=== PATIENT | female | born 1935 | race Caucasian/White ===

== ENCOUNTER 2021-02-06 09:40 | Outpatient (CLI) | payer MEDICARE, SELFPAY ==
--- NOTE | ~2021-02-06 | DEXA_ITS ---
Bone Density Report Name: Sandra Cavanaugh Age: 85 Sex: Female Ethnicity: White Date of : 1935 Indication: osteopenia; monitoring treatment; height loss; Referring Provider: Edward Christopher Study: Bone densitometry was performed. Exam Date: February 06, 2021 Accession number: [id number] Bone Density: Region BMD T-score Z-score Classification AP Spine (L1, L3) 0.916 -0.9 1.8 Normal Femoral Neck (Left) 0.675 -1.6 0.9 Osteopenia Total Hip (Left) 0.943 0.0 2.2 Normal Total Hip Bilateral Avg 0.944 0.0 2.2 Normal Femoral Neck (Right) 0.705 -1.3 1.1 Osteopenia Total Hip (Right) 0.944 0.0 2.2 Normal World Health Organization criteria for BMD impression classify patients as: Normal (T-score at or above -1.0), Osteopenia (T-score between -1.0 and -2.5), or Osteoporosis (T-score at or below -2.5). 10-year Fracture Risk: FRAX not reported because: Treated for osteoporosis Previous Exams: Region Exam Age BMD T-score BMD Change BMD Change Date g/cm2 vs Baseline vs Previous AP Spine(L1, L3) 02/06/2021 85 0.916 -0.9 0.073(8.6%)# 0.020(2.2%)# 11/16/2007 71 0.896 -1.1 0.053(6.3%)* 0.053(6.3%)* 01/13/2005 69 0.843 -1.5 Total Hip(Left) 02/06/2021 85 0.943 0.0 0.043(4.8%)# -0.005(-0.6%) 05/18/2017 81 0.948 0.1 0.048(5.4%)# 0.011(1.2%)# 11/16/2007 71 0.937 0.0 0.037(4.1%)* 0.037(4.1%)* 01/13/2005 69 0.900 -0.3 Total Hip(Right) 02/06/2021 85 0.944 0.0 0.101(12.0%)# 0.017(1.8%) 05/18/2017 81 0.927 -0.1 0.084(10.0%)# 0.029(3.2%)# 11/16/2007 71 0.898 -0.4 0.055(6.6%)* 0.055(6.6%)* 01/13/2005 69 0.842 -0.8 *Denotes significance at 95% confidence level, LSC for AP Spine = 0.022 g/cm2, LSC for Total Hip = 0.027 g/cm2 Clinical Information Provided by Patient: Is being treated for osteoporosis Has used the following medications: Fosamax (i.e. alendronate), Vitamin D, Calcium Patient maximum height was 65.5 Menopause Age: 52 No regular weight bearing exercise Does not regularly consume dairy products Onset of menses at age 15 Number of children 2 Impression: The patient has low bone mass, based on the Left Femoral Neck T-score. No significant bone loss was observed. Discussion: PATIENT UNDER TREATMENT WITH NO SIGNIFICANT BMD LOSS SINCE LAST EXAM. In an untreated patient, BMD typically declines with age. A lack of decline or gain is usually a sign that treatment is eff
--- NOTE | ~2021-02-06 | MM_ITS ---
EXAMINATION: MM screening zaida BI w isaiah HISTORY: Screening TECHNIQUE: Craniocaudal and mediolateral oblique 3-D tomosynthesis images were obtained and synthetic 2-D images were generated. CAD analysis was submitted and interpreted. COMPARISON: Comparison to multiple prior studies sequentially, with oldest reviewed study dated 04/29. BREAST PARENCHYMAL COMPOSITION: The breasts are heterogenously dense, which may obscure small masses FINDINGS: There is a new area of architectural distortion in the upper inner quadrant of the left georgina ast anteriorly. The right breast is stable without evidence for malignancy. IMPRESSION: 1. New architectural distortion upper inner quadrant of the left breast anteriorly. 2. Additional mammographic views and possible breast ultrasound are recommended. BI-RADS Category 0: Incomplete: Needs additional imaging evaluation. Reviewed, dictated and finalized at location A. IMPRESSION: 1. New architectural distortion upper inner quadrant of the left breast anterio rly. 2. Additional mammographic views and possible breast ultrasound are recommended . BI-RADS Category 0: Incomplete: Needs additional imaging evaluation.
== END 2021-02-06 09:41 | disposition home or self-care (01) ==
LOC: ANHIMG 09:43
PROVIDERS: PCP Physician Assistant; Visit Provider Physician Assistant
DX: Z12.31 Encounter for screening mammogram for malignant neoplasm of breast (principal); M81.0 Age-related osteoporosis without current pathological fracture; R92.8 Other abnormal and inconclusive findings on diagnostic imaging of breast; M85.852 Other specified disorders of bone density and structure, left thigh; M85.851 Other specified disorders of bone density and structure, right thigh
CPT/HCPCS: 77063; 77067; 77080

== ENCOUNTER 2021-03-03 12:02 | Outpatient (CLI) | payer MEDICARE, SELFPAY ==
--- NOTE | ~2021-03-03 | MMUS_ITS ---
EXAMINATION: MM diagnostic mammo unilat LT, US breast LT limited HISTORY: Left breast architectural distortion on screening mammogram TECHNIQUE: Additional 3-D tomosynthesis images of the left breast were performed and synthetic 2-D im ages were generated. CAD analysis was submitted and interpreted. High resolution limited left breast ultrasound was performed. COMPARISON: 02/06/2021, 05/26/2018, 05/25/2017, 05/18/2017 FINDINGS: MAMMOGRAPHIC FINDINGS: There is a chronic area of architectural distortion at the 12:00 location in the middle third breast. On prior mammograms, an oil cyst was situated centrally within the area of architectural distortion. The oil cyst is no longer evident possibly resulting in a more consolidated appearance of the chroni c architectural distortion relative to prior mammograms. No suspicious calcification or definite mass are identified. ULTRASOUND: Small cysts are noted in the breast at the 11:00 location 2 cm from the nipple in the 12:00 location near the nipple. No definite suspicious cystic or solid mass is identified. A focal area of shadowing is seen in the breast at the 11:00 location 2 cm from the nipple with a tract contiguous with a scar of the skin. IMPRESSION: 1. Probably benign left breast findings. 2. Recommend 6 month follow-up left diagnostic mammogram and possible ultrasound. BI-RADS category 3, probably benign findings. Reviewed, dictated and finalized at location A. IMPRESSION: 1. Probably benign left breast findings. 2. Recommend 6 month follow-up left diagnostic mammogram and possible ultrasoun d. BI-RADS category 3, probably benign findings.
== END 2021-03-03 12:03 | disposition home or self-care (01) ==
PROVIDERS: PCP Physician Assistant; Visit Provider Physician Assistant
DX: N60.02 Solitary cyst of left breast (principal)
CPT/HCPCS: 76642; 77065

== ENCOUNTER 2021-09-03 10:57 | Outpatient (CLI) | payer MEDICARE, SELFPAY ==
--- NOTE | ~2021-09-03 | MMUS_ITS ---
EXAMINATION: MM diagnostic zaida LT w isaiah, US breast LT limited HISTORY: 6 month follow up TECHNIQUE: ML, MLO and CC 3-D tomosynthesis images of were performed and synthetic 2-D images were ge nerated. CAD analysis was submitted and interpreted. High resolution targeted left breast ultrasound was performed. COMPARISON: 03/04/2021 diagnostic left mammogram and limited left breast ultrasound 02/06/2021, 05/26/2018 bilateral screening mammogram examinations BREAST PARENCHYMAL COMPOSITION: There are scattered areas of fibroglandular density. FINDINGS: MAMMOGRAPHIC FINDINGS: There is suspicious new irregular soft tissue density and interval architectural distortion in the an terior upper mid left breast compared to prior examinations. ULTRASOUND: At 11:00 2 cm from the nipple corresponding to the area of mammographic abnormality is a prominent ar ea of heterogeneous irregular echotexture with prominent posterior shadowing. There is an at least 5 mm irregular hypoechoic area with prominent posterior shadowing. Ultrasound-guided biopsy is recommen ded. IMPRESSION: 1. Suspicious irregular hypoechoic sonographic mass with posterior shadowing corresponding to new zaida mographic architectural distortion at 11:00 2 cm from nipple 2. Ultrasound-guided biopsy is recommended. BI-RADS category 4, suspicious findings. Dr. Mendoza telephoned the report and ultrasound guided biopsy recommendation on 09/03/2021 at 1453 hour s to Nurse [employer] extension [phone] Reviewed, dictated and finalized at location A. UTER NETWORK SUPPORT SPECIALIST IMPRESSION: 1. Suspicious irregular hypoechoic sonographic mass with posterior shadowing co rresponding to new mammographic architectural distortion at 11:00 2 cm from nip ple 2. Ultrasound-guided biopsy is recommended. BI-RADS category 4, suspicious findings. Dr. Mendoza telephoned the report and ultrasound guided biopsy recommendation on 11/04/2020 at 1453 hours to Nurse voicemail extension [phone] IMPRESSION: 1. Suspicious irregular hypoechoic sonographic mass with posterior shadowing co rresponding to new mammographic architectural distortion at 11:00 2 cm from nip ple 2. Ultrasound-guided biopsy is recommended. BI-RADS category 4, suspicious findings. Dr. Mendoza telephoned the report and ultrasound guided biopsy recommendation on 11/04/2020 at 1453 hours to Nurse voicemail extension [phone]
== END 2021-09-03 10:58 | disposition home or self-care (01) ==
LOC: ANHIMG 10:58
PROVIDERS: PCP Family Medicine; Visit Provider Physician Assistant
DX: R92.8 Other abnormal and inconclusive findings on diagnostic imaging of breast (principal)
CPT/HCPCS: 76642; 77061; 77065; G0279

== ENCOUNTER 2021-09-15 10:10 | Outpatient (CLI) | payer MEDICARE, SELFPAY ==
--- NOTE | ~2021-09-15 | MMUS_ITS ---
US breast biopsy LT w image, MM post biopsy invasive LT EXAMINATION: US GUIDED NEEDLE BIOPSY WITH VAC UUM ASSISTANCE DATE: 09/15/2021 11:21 BILLING SPECIALIST INDICATION: Abnormal mass in the left breast seen on prior examination. Ultrasound-guided core biops y is requested to evaluate for malignancy. TECHNIQUE AND FINDINGS: The risks and potential benefits of the procedure were discussed with the patient, and written inform ed consent was obtained. After sterile preparation of the left breast, 1% lidocaine was utilized for local anesthesia. 1% lidocaine with epinephrine was used for deep anesthesia. A 10G vacuum-assisted biopsy gun needle was advanced through to the outer edge of the region of inter est from a superior approach utilizing sonographic guidance. A total of 5 tissue core samples were o btained through the lesion. An Inrad tissue marker clip was then placed at the biopsy site. Hemostas is was achieved. The patient tolerated procedure well and there was no evidence of immediate complication. The patien t was given verbal instructions partly is from the department. Left breast mammograms to document ti ssue marker clip placement. The tissue samples were submitted to surgical pathology for histologic an alysis. IMPRESSION: 1. Successful ultrasound-guided vacuum-assisted biopsy of left breast mass in the upper inner quadra nt with tissue marker placement. Please refer to pathology report for histologic analysis. Reviewed, dictated and finalized at location A. ING SPECIALIST IMPRESSION: 1. Successful ultrasound-guided vacuum-assisted biopsy of left breast mass in the upper inner quadrant with tissue marker placement. Please refer to patholog y report for histologic analysis.
== END 2021-09-15 10:11 | disposition home or self-care (01) ==
LOC: ANHIMG 10:13
PROVIDERS: PCP Family Medicine; Visit Provider Family Medicine
DX: R92.8 Other abnormal and inconclusive findings on diagnostic imaging of breast (principal)
CPT/HCPCS: 19083; 88305; A4648

== ENCOUNTER 2022-10-01 09:05 | Outpatient (CLI) | payer MEDICARE, SELFPAY ==
--- NOTE | ~2022-10-01 | MM_ITS ---
EXAMINATION: MM screening [facility] BI w isaiah HISTORY: Screening TECHNIQUE: Craniocaudal and mediolateral oblique 3-D tomosynthesis images were obtained and synthetic 2-D images were generated. CAD analysis was submitted and interpreted. COMPARISON: Comparison to multiple prior studies sequentially, with oldest reviewed study dated 02/2017. BREAST PARENCHYMAL COMPOSITION: There are scattered areas of fibroglandular density. FINDINGS: Stable architectural distortion upper central left breast with associated tissue marker fro m previous benign biopsy. There is no evidence of suspicious mass, calcification, or architectural di stortion to suggest malignancy in either breast. There has been no suspicious interval change. IMPRESSION: 1. No mammographic evidence of malignancy. 2. Recommend routine screening mammography in one year. BI-RADS Category 2: Benign finding(s). Reviewed, dictated and finalized at location A. GAGE LOAN FUNDER
== END 2022-10-01 09:06 | disposition home or self-care (01) ==
PROVIDERS: PCP Family Medicine; Visit Provider Physician Assistant Medical
DX: Z12.31 Encounter for screening mammogram for malignant neoplasm of breast (principal)
CPT/HCPCS: 77063; 77067

== ENCOUNTER → 2023-08-03 10:25 | Outpatient (CLI) | payer MEDICARE, SELFPAY ==
--- NOTE | ~2023-08-03 | XR_ITS ---
XR hip BI 2V w AP pelvis DATE: 08/03/2023 10:44 INDICATION: Right hip pain TECHNIQUE: AP pelvis. AP and lateral views of each hip. COMPARISON: None FINDINGS: There is severe degenerative disc disease at L4-5 and L5-S1. There is levoscoliosis of the lumbar spine. Diffuse osteopenia. Normal alignment at the pubic symphysis and sacroiliac joints. No pelvic fracture or bone destruction is detected. No fracture or dislocation, avascular necrosis or bone destruction of either hip is detected. Right h ip joint space narrowing compared to left hip. IMPRESSION: Osteopenia Levoscoliosis and multilevel degenerative disc disease of the lumbar spine No pelvic or left or right hip fracture Mild right hip osteoarthritis Reviewed, dictated and finalized at location B. CAL ARTIST
== END ==
PROVIDERS: PCP Physician Assistant Medical; Visit Provider Physician Assistant Medical
DX: M25.552 Pain in left hip (principal); M25.551 Pain in right hip; M85.88 Other specified disorders of bone density and structure, other site; M41.86 Other forms of scoliosis, lumbar region; M51.36 Other intervertebral disc degeneration, lumbar region; M16.11 Unilateral primary osteoarthritis, right hip
CPT/HCPCS: 73521

== ENCOUNTER 2023-11-28 11:42 | Outpatient (CLI) | payer MEDICARE, SELFPAY ==
--- NOTE | ~2023-11-28 | MM_ITS ---
EXAMINATION: MM screening zaida BI w isaiah HISTORY: Screening mammogram TECHNIQUE: Craniocaudal and mediolateral oblique 3-D tomosynthesis images were obtained and synthetic 2-D images were generated. CAD analysis was submitted and interpreted. 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 FINDINGS: Biopsy marker in the upper mid left breast, reportedly benign. There is no evidence of susp icious mass, calcification, or architectural distortion to suggest malignancy in either breast. There has been no suspicious interval change. IMPRESSION: 1. No mammographic evidence of malignancy. 2. Recommend routine screening mammography in one year. BI-RADS Category 2: Benign finding(s). Reviewed, dictated and finalized at location A.
== END 2023-11-28 11:43 ==
LOC: MICIMG 11:43
PROVIDERS: PCP Physician Assistant Medical; Visit Provider Physician Assistant Medical
DX: Z12.31 Encounter for screening mammogram for malignant neoplasm of breast (principal)
CPT/HCPCS: 77063; 77067

== ENCOUNTER 2024-12-29 08:34 | Outpatient (CLI) | payer MEDICARE, SELFPAY ==
--- NOTE | ~2024-12-29 | MM_ITS ---
EXAMINATION: MM screening zaida BI w isaiah HISTORY: Screening TECHNIQUE: Craniocaudal and mediolateral oblique 3-D tomosynthesis images were obtained and synthetic 2-D images were generated. CAD analysis was submitted and interpreted. COMPARISON: Comparison to multiple prior studies sequentially, with oldest reviewed study dated 02/06. BREAST PARENCHYMAL COMPOSITION: Dense: The breasts are heterogeneously dense, which may obscure small masses FINDINGS: There is no evidence of suspicious mass, calcification, or architectural distortion to sugg est malignancy in either breast. There has been no suspicious interval change. IMPRESSION: 1. No mammographic evidence of malignancy. 2. Recommend routine screening mammography in one year. BI-RADS Category 1: Negative Reviewed, dictated and finalized at location B.
== END 2024-12-29 08:35 | disposition home or self-care (01) ==
LOC: MICIMG 08:35
PROVIDERS: PCP Family Medicine; Visit Provider Family Medicine
DX: Z12.31 Encounter for screening mammogram for malignant neoplasm of breast (principal)
CPT/HCPCS: 77063; 77067